=== PATIENT | male | born 1970 | race Caucasian/White ===

== ENCOUNTER 2019-02-23 20:37 | Inpatient (IN) | payer BC ==
[~2019-02-23] VITALS: Ht 172.7 cm; Wt 101.6 kg
[~2019-02-23 20:37] MED LIST: ENALAPRIL MALEA20 MG PO; FENOFIBRATE160 MG PO; METOPROLOL SUCC25 MG PO; NORVASC10 MG PO
--- NOTE | 2019-02-23 20:55 | NUR ---
ED Nurse Note: Pt ambulated to ED from home c/o10/10 sudden sharp stabing pain in lower back that radiates to the flank, denies N/V/D pr fever
[2019-02-23 21:00] VITALS: BP 108/73
[2019-02-23] MEDS ORDERED: Ketorolac 30mg Inj IV ONE (21:30)
[2019-02-23] MEDS ORDERED: Omnipaque-300 100ml vial INJ PRN (21:30)
[2019-02-23] MEDS ORDERED: Morphine Sulfate 4mg/ml Inj (IV USE ONLY) IVP ONE (21:30)
[2019-02-23 22:14] LABS: BASOPHILS % (AUTO) 0.9 % (0.0-2.0); EOSINOPHILS % (AUTO) 0.4 % (0.0-3.0); HEMATOCRIT 41.3 % (42.0-52.0); HEMOGLOBIN 14.3 G/DL (14.2-18.0); LYMPHOCYTES % (AUTO) 20.5 % (20.0-45.0); MEAN CORPUSCULAR VOLUME 81 FL (80-99); MONOCYTES % (AUTO) 7.2 % (1.0-10.0); PLATELET COUNT 246 K/UL (150-450); RED BLOOD COUNT 5.08 M/UL (4.70-6.10); WHITE BLOOD COUNT 11.1 K/UL (4.8-10.8)
[2019-02-23 22:27] LABS: ANION GAP 12 mmol/L (5-15); BLOOD UREA NITROGEN 37 mg/dL (7-18); CALCIUM 9.6 MG/DL (8.5-10.1); CARBON DIOXIDE 26 MMOL/L (21-32); CHLORIDE 99 MMOL/L (98-107); CREATININE 2.1 MG/DL (0.55-1.30); POTASSIUM 3.7 MMOL/L (3.5-5.1); SODIUM 137 MMOL/L (136-145)
[2019-02-23 22:45] LABS: ALANINE AMINOTRANSFERASE 45 U/L (12-78); ALBUMIN 3.6 G/DL (3.4-5.0); ALBUMIN/GLOBULIN RATIO 0.8 (1.0-2.7); ALKALINE PHOSPHATASE 83 U/L (46-116); ASPARTATE AMINO TRANSFERASE 21 U/L (15-37); BILIRUBIN,TOTAL 1.7 MG/DL (0.2-1.0)
[2019-02-23 22:46] LABS: BILIRUBIN,DIRECT 0.3 MG/DL (0.0-0.3)
--- NOTE | 2019-02-23 22:49 | NUR ---
ED Nurse Note: Pt to CT
--- NOTE | 2019-02-23 22:50 | NUR ---
ED Nurse Note: Pt back from CT, reports pain is 0/10 at this time
[2019-02-23 23:00] VITALS: BP 110/75
[2019-02-23 23:09] LABS: APPEARANCE,URINE CLOUDY; BILIRUBIN, URINE NEGATIVE (NEGATIVE); COLOR,URINE PALE YELLOW; GLUCOSE, URINE (UA) NEGATIVE (NEGATIVE); KETONES,URINE 3+ (NEGATIVE); LEUKOCYTE ESTERASE ,URINE 2+ (NEGATIVE); NITRITE,URINE NEGATIVE (NEGATIVE); PH,URINE 5 (4.5-8.0); PROTEIN,URINE 1+ (NEGATIVE); UROBILINOGEN,URINE NORMAL MG/DL (0.0-1.0)
--- NOTE | 2019-02-23 23:39 | Diagnostic Imaging Report ---
Indication: Sudden sharp radiating flank pain and lower back pain Technique: Spiral acquisitions obtained through the abdomen and pelvis. No oral or IV contrast utilized, per urinary stone protocol. Multiplanar reconstructions were generated. Total dose length product 1765 mGycm. CTDIvol(s) 28 mGy. Dose reduction achieved using automated exposure control Comparison: none Findings: There is a 4 mm calculus sitting dependently within the bladder lumen centrally. There is mild prominence of the right renal collecting system and right ureter and slight stranding of the perinephric fat. No intrarenal calculus demonstrated on the right. No ureteral calculi seen on either side A calcification is seen in a left upper pole calyx measuring 3 mm in diameter. There is very slight stranding of the perinephric fat on the left, but this is somewhat less striking than the right, and there is no evidence of ureteral dilatation or hydronephrosis. The bladder itself is unremarkable. Seminal vesicles and prostate are unremarkable. Lack of IV contrast limits assessment of the renal parenchyma. No gross renal parenchymal mass or cyst demonstrated. Lack of IV contrast limits assessment of the other solid organs. The liver is diffusely hypoattenuating with some patchy areas of sparing in segments 2 and 3. No focal abnormality otherwise. The gallbladder, bile ducts, pancreas, spleen, adrenals are unremarkable. The included lung bases are clear except for some atelectasis or scarring in the inferior lingula. The bones demonstrate degenerative changes at the lumbosacral junction, are otherwise unremarkable. Impression: 4 mm calculus within the bladder lumen, presumably a recently passed stone. Slight right hydronephrosis and proximal ureteral ectasia and periureteral fat stranding suggests that this came from the right kidney. This finding was not reported on the [facility] preliminary report. Dr. Diaz notified by phone of this finding and [facility] was notified. There is website Nonobstructive intrarenal calculus seen within the left kidney Fatty liver with areas of focal sparing Incidental findings as noted, including basilar pulmonary parenchymal atelectatic changes versus scarring, prior cholecystectomy The CT scanner at [facility] is accredited by the [employer] and the scans are performed using protocols designed to limit radiation exposure to as low as reasonably achievable to attain images of sufficient resolution adequate for diagnostic evaluation.
[2019-02-24] MEDS ORDERED: cefTRIAXone 1 GM in NS 55 ML IVPB ONE (00:15)
--- NOTE | 2019-02-24 01:15 | NUR ---
TRANSFER TO FLOOR: Patient transferred to as ordered, per Dr Garza. Report given to SHERLYN Hernadez. Belongings and medications given to . Family and or S/O informed of transfer.
--- NOTE | 2019-02-24 01:30 | NUR ---
NURSE NOTES: PATIENT WAS SAFELY TRANSFER TO UNIT ROOM 411-2 VIA WHEELCHAIR. ORIENTED PATIENT TO ROOM AND UNIT. BELONGING LIST REVIEWED AND SIGNED BY PATIENT. RECEIVED REPORT FROM SHERLYN MORAN. PT IS AWAKE, AAO X4, ON ROOM AIR, NO ACUTE DISTRESS NOTED. PATIENT DENIES PAIN AND SOB. SKIN IS INTACT. IV ON LEFT AC 20G AND RIGHT AC 20G IS INTACT AND PATENT. ABDOMEN IS ROUND AND SOFT. SLIGHTLY DISTENDED. CONTACTED DR. DE SOUZA FOR ADMISSION ORDERS. AWAITING FOR CALL BACK. PATIENT'S HOME MEDICATION WAS SENT DOWN TO PHARMACY. RECEIPT NUMBER [id number]. BED IS LOCKED AND LOW, BED ALARMS ACTIVE, SIDE RAILS UP X2 AND CALL LIGHT IS WITHIN REACH. WILL CONTINUE TO MONITOR.
--- NOTE | 2019-02-24 02:42 | Emergency Room Report ---
History of Present Illness General Chief Complaint: Back Pain-No Injury Source: Patient Present Illness HPI 48-year-old male presents ED for evaluation. Complaining of back pain. Started tonight. States he has been having back pain on and off for the last week but got worse tonight. Denies any fall or injury. States he is recently had physical therapy and acupuncture without relief. Pain is 10 out of 10, sharp, radiating to the mid abdomen on the right. Notes nausea, denies vomiting. No other aggravating relieving factors. Denies any other associated symptoms Allergies: Coded Allergies: No Known Allergies (Unverified , 09/22/11) Patient History Past Medical History: HTN Past Surgical History: none Pertinent Family History: none Social History: Denies: smoking, alcohol use, drug use Immunizations: UTD Reviewed Nursing Documentation: PMH: Agreed; PSxH: Agreed Nursing Documentation-PMH Hx Hypertension: Yes Hx Cancer: No Hx Gastrointestinal Problems: Yes Hx Neurological Problems: No Review of Systems All Other Systems: negative except mentioned in HPI Physical Exam Vital Signs Date Time Temp Pulse Resp B/P (MAP) Pulse Ox O2 Delivery O2 Flow Rate FiO2 02/23/19 20:50 98.2 89 16 108/73 (85) 95 Room Air Sp02 EP Interpretation: reviewed, normal General Appearance: alert, GCS 15, non-toxic, mild distress Head: normocephalic, atraumatic Eyes: bilateral eye normal inspection, bilateral eye PERRL ENT: hearing grossly normal, normal pharynx, no angioedema, normal voice Neck: full range of motion, supple/symm/no masses Respiratory: chest non-tender, lungs clear, normal breath sounds, speaking full sentences Cardiovascular #1: regular rate, rhythm, no edema Cardiovascular #2: 2+ carotid (R), 2+ carotid (L), 2+ radial (R), 2+ radial (L) , 2+ dorsalis pedis (R), 2+ dorsalis pedis (L) Gastrointestinal: normal bowel sounds, soft, non-distended, no guarding, no rebound, tenderness - R side abdomen Rectal: deferred Genitourinary: normal inspection, CVA tenderness (R) Musculoskeletal: back normal, normal range of motion, gait/station normal, non- tender Neurologic: alert, motor strength/tone normal, oriented x3, sensory intact, responsive, speech normal Psychiatric: judgement/insight normal, memory normal, mood/affect normal, no suicidal/homicidal ideation Reflexes: 3+ bicep (R), 3+ bicep (L), 3+ tricep (R), 3+ tricep (L), 3+ knee (R) , 3+ knee (L) Skin: no rash Lymphatic: no adenopathy Medical Decision Making Diagnostic Impression: Primary Impression: Kidney stone Additional Impressions: UTI (urinary tract infection) Qualified Codes: N39.0 - Urinary tract infection, site not specified; R31.9 - Hematuria, unspecified Renal insufficiency ER Course Hospital Course 48-year-old M presents to ED with R flank pain Differential diagnosis includes-appendicitis, cholecystitis, kidney stone, pyelonephritis Clinical course Patient placed on stretcher. After initial history and physical I ordered labs , IV fluids, pain medications and CT scan Labs - no leukocytosis, hb/hct stable, BUN/Cr elevated, UA + bacteria + blood CT shows no evidence of an obstructive uropathy. Consideration for passed stone. Given UTI with elevated BUN/creatinine I believe patient should be admitted. Discussed case with urology and they agreed. Given IV fluids. Given antibiotics. Dr Diaz will consult. patient admitted to Dr Barnes service I feel this is a highly complex case requiring extensive working including EKG/ Rhythm strip, Xray/CT/US, Blood/urine lab work, repeat exams while in ED, and administration of strong opiates/narcotics for pain control, admission to hospital or close patient follow up. Diagnosis - kidney stone, UTI, renal insufficiency admitted to floor in serious condition Labs Test 02/23/19 21:40 02/23/19 23:00 White Blood Count 11.1 K/UL (4.8-10.8) Red Blood Count 5.08 M/UL (4.70-6.10) Hemoglobin 14.3 G/DL (14.2-18.0) Hematocrit 41.3 % (42.0-52.0) Mean Corpuscular Volume 81 FL (80-99) Mean Corpuscular Hemoglobin 28.1 PG (27.0-31.0) Mean Corpuscular Hemoglobin Concent 34.7 G/DL (32.0-36.0) Red Cell Distribution Width 10.0 % (11.6-14.8) Platelet Count 246 K/UL (150-450) Mean Platelet Volume 5.7 FL (6.5-10.1) Neutrophils (%) (Auto) 71.0 % (45.0-75.0) Lymphocytes (%) (Auto) 20.5 % (20.0-45.0) Monocytes (%) (Auto) 7.2 % (1.0-10.0) Eosinophils (%) (Auto) 0.4 % (0.0-3.0) Basophils (%) (Auto) 0.9 % (0.0-2.0) Sodium Level 137 MMOL/L (136-145) Potassium Level 3.7 MMOL/L (3.5-5.1) Chloride Level 99 MMOL/L (98-107) Carbon Dioxide Level 26 MMOL/L (21-32) Anion Gap 12 mmol/L (5-15) Blood Urea Nitrogen 37 mg/dL (7-18) Creatinine 2.1 MG/DL (0.55-1.30) Estimat Glomerular Filtration Rate 33.9 mL/min (>60) Glucose Level 99 MG/DL (74-106) Calcium Level 9.6 MG/DL (8.5-10.1) Total Bilirubin 1.7 MG/DL (0.2-1.0) Direct Bilirubin 0.3 MG/DL (0.0-0.3) Aspartate Amino Transf (AST/SGOT) 21 U/L (15-37) Alanine Aminotransferase (ALT/SGPT) 45 U/L (12-78) Alkaline Phosphatase 83 U/L (46-116) Total Protein 7.9 G/DL (6.4-8.2) Albumin 3.6 G/DL (3.4-5.0) Globulin 4.3 g/dL Albumin/Globulin Ratio 0.8 (1.0-2.7) Lipase 99 U/L (73-393) Urine Color Pale yellow Urine Appearance Cloudy Urine pH 5 (4.5-8.0) Urine Specific [place] 1.020 (1.005-1.035) Urine Protein 1+ (NEGATIVE) Urine Glucose (UA) Negative (NEGATIVE) Urine Ketones 3+ (NEGATIVE) Urine Blood 5+ (NEGATIVE) Urine Nitrite Negative (NEGATIVE) Urine Bilirubin Negative (NEGATIVE) Urine Urobilinogen Normal MG/DL (0.0-1.0) Urine Leukocyte Esterase 2+ (NEGATIVE) Urine RBC Tntc /HPF (0 - 0) Urine WBC 20-30 /HPF (0 - 0) Urine Squamous Epithelial Cells None /LPF (NONE/OCC) Urine Amorphous Sediment Moderate /LPF (NONE) Urine Bacteria Moderate /HPF (NONE) Urine Opiates Screen Positive (NEGATIVE) Urine Barbiturates Screen Negative (NEGATIVE) Phencyclidine (PCP) Screen Negative (NEGATIVE) Urine Amphetamines Screen Negative (NEGATIVE) Urine Benzodiazepines Screen Negative (NEGATIVE) Urine Cocaine Screen Negative (NEGATIVE) Urine Marijuana (THC) Screen Negative (NEGATIVE) CT/MRI/US Diagnostic Results CT/MRI/US Diagnostic Results : Imaging Test Ordered: CT A/P Impression Small nonobstructing calyceal calculus at the upper pole of the left kidney. No evidence for obstructive uropathy. Hepatic steatosis. Prior cholecystectomy. No appendicitis, inflammatory changes of bowel or bowel obstruction. No free fluid. No free air. Aorta, spleen, pancreas, and kidneys are unremarkable. Last Vital Signs Date Time Temp Pulse Resp B/P (MAP) Pulse Ox O2 Delivery O2 Flow Rate FiO2 02/24/19 01:15 98.4 78 16 110/75 96 Room Air Status: improved Disposition: ADMITTED INPATIENT Condition: Serious Referrals: NON PHYSICIAN (PCP) Gary Bronson MD Feb 24, 2019 02:42
[2019-02-24] MEDS ORDERED: Ketorolac 30mg Inj IV PRN (02:45)
[2019-02-24] MEDS ORDERED: Morphine Sulfate 4mg/ml Inj (IV USE ONLY) IVP PRN ×2 (02:45→04:45)
[2019-02-24 04:00] VITALS: BP_SYST 107; BP_SYST 123; BP_DIAS 60; BP_DIAS 78
--- NOTE | 2019-02-24 07:18 | NUR ---
HAND-OFF: Report given to SHERLYN Villaseñor. Patient is in stable condition. Endorsed plan of care.
--- NOTE | 2019-02-24 07:22 | NUR ---
NURSE NOTES: Received patient in bed awake. No SOB or acute distress. IV lines intact. HOB elevated. Bed locked in lowest position. Call light within reach. On NPO. Will continue plan of care.
[2019-02-24 08:00] VITALS: BP 114/85
[2019-02-24] MEDS: Metoprolol Succinate XL 25mg tab ORAL SCH (09:37)
--- NOTE | 2019-02-24 11:23 | Consultation ---
Consult Note Consult Note asked to eval for renal failure- patient interviewed Denies any history of renal failure HTN only past history examined questions answered data reviewed 48-year-old male presents ED for evaluation. Complaining of back pain. Started tonight. States he has been having back pain on and off for the last week but got worse tonight. Denies any fall or injury. States he is recently had physical therapy and acupuncture without relief. Pain is 10 out of 10, sharp, radiating to the mid abdomen on the right. Notes nausea, denies vomiting. No other aggravating relieving factors. Denies any other associated symptoms No Known Allergies (Unverified , 09/22/11) Past Medical History: HTN Hx Hypertension: Yes Hx Gastrointestinal Problems: Yes . Assessment/Plan Renal failure- Kidney Stone HTN UTI Hydrate monitor renal parameters avoid nephrotoxics PRN BP meds per orders Jude Yun MD Feb 24, 2019 11:23
[2019-02-24] MEDS ORDERED: HydrALAZINE 25mg tab ORAL PRN (11:30)
[2019-02-24] MEDS: Tamsulosin 0.4mg cap ORAL SCH ×2 (11:34→17:38)
[2019-02-24] MEDS: D5NS 1,000 ML IV SCH ×2 (11:35→22:52)
[2019-02-24 11:41] LABS: BASOPHILS % (AUTO) 1.1 % (0.0-2.0); EOSINOPHILS % (AUTO) 1.6 % (0.0-3.0); HEMATOCRIT 40.7 % (42.0-52.0); HEMOGLOBIN 14.2 G/DL (14.2-18.0); LYMPHOCYTES % (AUTO) 27.7 % (20.0-45.0); MEAN CORPUSCULAR VOLUME 81 FL (80-99); MONOCYTES % (AUTO) 8.4 % (1.0-10.0); NEUTROPHILS % (AUTO) 61.3 % (45.0-75.0); PLATELET COUNT 265 K/UL (150-450); RED BLOOD COUNT 5.03 M/UL (4.70-6.10); WHITE BLOOD COUNT 7.9 K/UL (4.8-10.8)
[2019-02-24 11:56] LABS: CHOLESTEROL 179 MG/DL (< 200); HDL CHOLESTEROL 48 MG/DL (40-60); TRIGLYCERIDES 122 MG/DL (30-150)
[2019-02-24 11:59] LABS: ALANINE AMINOTRANSFERASE 45 U/L (12-78); ALBUMIN 3.6 G/DL (3.4-5.0); ALBUMIN/GLOBULIN RATIO 0.8 (1.0-2.7); ALKALINE PHOSPHATASE 91 U/L (46-116); ANION GAP 15 mmol/L (5-15); ASPARTATE AMINO TRANSFERASE 19 U/L (15-37); BILIRUBIN,TOTAL 1.4 MG/DL (0.2-1.0); BLOOD UREA NITROGEN 33 mg/dL (7-18); CARBON DIOXIDE 22 MMOL/L (21-32); CHLORIDE 101 MMOL/L (98-107); CREATINE KINASE 97 U/L (26-308); GAMMA GLUTAMYL TRANSPEPTIDASE 5 U/L (5-85); PHOSPHORUS 3.7 MG/DL (2.5-4.9); POTASSIUM 3.8 MMOL/L (3.5-5.1); SODIUM 138 MMOL/L (136-145)
[2019-02-24 12:00] VITALS: BP 115/73
[2019-02-24 12:17] LABS: CALCIUM 9.2 MG/DL (8.5-10.1); CREATININE 1.6 MG/DL (0.55-1.30)
[2019-02-24 16:00] VITALS: BP 116/64
--- NOTE | 2019-02-24 17:00 | NUR ---
CHARGE NURSE NOTE: Spoke with , notified him about CT of abdomen result. He is not planning to do any procedure. He said pt can be discharged tomorrow.
--- NOTE | 2019-02-24 19:54 | NUR ---
NURSE NOTES: Received patient awake, alert, verbal, resting in bed comfortably without complaints.
[2019-02-24 20:00] VITALS: BP 110/70
--- NOTE | 2019-02-24 22:30 | History and Physical Report ---
DATE OF ADMISSION: 02/24/2019 HISTORY OF PRESENT ILLNESS: The patient is admitted for renal insufficiency as well as urinary tract infection as well as possible kidney stone. The patient complains of four-day of right flank pain that was intermittent, associated with vomiting after eating. The patient denies diarrhea, denies abdominal pain, but does have right-sided flank pain. Denies chills. Denies wheezing. Denies shortness of breath. Denies cough. The patient is admitted for also possible kidney stone. PAST MEDICAL HISTORY: Significant for hyperlipidemia, hypertension. PAST SURGICAL HISTORY: Appendectomy surgery. ALLERGIES: No known allergies. MEDICATIONS: Enalapril, Norvasc, fenofibrate, and metoprolol. FAMILY HISTORY: Noncontributory. SOCIAL HISTORY: Denies smoking, alcohol, or illicit drugs. Denies all of that. REVIEW OF SYSTEMS: HEENT: Denies headaches. RESPIRATORY: Denies shortness of breath. Denies cough. CARDIOVASCULAR: Denies chest pain. GASTROINTESTINAL: He does have vomiting for four days and does have right-sided flank pain for four days that is intermittent. No constipation or diarrhea. EXTREMITIES: Denies pain in lower extremities. CENTRAL NERVOUS SYSTEM: Denies change in speech pattern. PHYSICAL EXAMINATION: VITAL SIGNS: Basically temperature is 97.9, pulse is 75, blood pressure 115/70. HEENT: PERRLA. NECK: Supple. No lymphadenopathy. CHEST: Clear to auscultation. CARDIOVASCULAR: Regular rate and rhythm. No murmurs or extra sounds. GASTROINTESTINAL: Abdomen is soft. No organomegaly. EXTREMITIES: No edema. Moves all four extremities. NEUROLOGIC: . Oriented x2. Reflexes equal on both sides. LABORATORY DATA: WBC of 11.1, hemoglobin 14.3, and platelets of 246,000. Sodium 137, potassium 3.7, BUN of 37, creatinine of 2.1, and glucose of 99. ASSESSMENT AND PLAN: 1. Acute renal failure. 2. Possible kidney stone. 3. Urinary tract infection. The patient's symptoms are very consistent with kidney stone as well. I have asked Dr. Diaz as well as Dr. Mehran Christianson, Dr. Yun to help with the management of the acute renal failure as well as for the management of the kidney stone and urinary tract infection. Antibiotics per Dr. Mehran Christianson. Mar Barnes M.D. DR: DANA JOB#: [id number] CC:
[2019-02-24] MEDS ORDERED: cefTRIAXone 1 GM in D5W 55 ML IVPB SCH (23:00)
[2019-02-25 00:01] VITALS: BP 101/64
--- NOTE | 2019-02-25 02:15 | Consultation ---
DATE OF CONSULTATION: 02/24/2019 INFECTIOUS DISEASES CONSULTATION CONSULTING PHYSICIAN: Mehran Christianson M.D. PRIMARY ATTENDING PHYSICIAN: Mar Barnes M.D. REASON FOR CONSULTATION: UTI, nephrolithiasis. HISTORY OF PRESENT ILLNESS: This is a 48-year-old white male admitted today from home complaining of left flank pain for one week on and off with radiation to the anterior abdomen. The patient had acupuncture & pain medications without improvement and last night the pain became so severe that the patient came to the ER. PAST MEDICAL HISTORY: Significant for hypertension. ALLERGIES: No known drug allergies. MEDICATIONS: Getting Flomax, hydralazine, metoprolol, Tylenol, morphine, Zofran. Got a dose of ceftriaxone in the ER. SOCIAL HISTORY: Single, has a partner. Denies alcohol, drug abuse, or smoking. REVIEW OF SYSTEMS: The patient has no pain at the present time. No fever. No chills. No coughing. No shortness of breath. No chest pain. No nausea. No vomiting. PHYSICAL EXAMINATION: VITAL SIGNS: Temperature 97.2, pulse 72, blood pressure 114/85. GENERAL APPEARANCE: No acute distress, ambulatory, obese HEAD AND NECK: Saxis conjunctiva. No oral lesion. HEART: S1 and S2 regular. LUNGS: Clear. ABDOMEN: Soft, nontender. EXTREMITIES: No edema noted. NEUROLOGIC: Awake, alert, oriented x3. LABORATORY AND DIAGNOSTIC DATA: UA showed wbc's of 20 to 30, rbc's too numerous to count. Sodium 138, potassium 2.8, chloride 101, bicarbonate 22, BUN 33, creatinine 1.6. Uric acid is 11.2. Urine toxicology is positive for opiates. WBC at the time of admission was 11.1 and today is 7.9, hemoglobin 14.2, hematocrit 40.7, platelets is 265. Urine culture so far no growth. CT scan of abdomen and pelvis showed fatty liver, 4 mm calculus within the bladder lumen, presumably recently passed IMPRESSION: Pyuria, hematuria likely secondary to passing kidney stone, nephrolithiasis, mild right hydronephrosis, acute renal failure, fatty liver. RECOMMENDATIONS: The patient may benefit from short term antibiotic in hospital. We will follow up the clinical course.We will continue Rocephin. At the end of my exam, I thank Dr. Barnes, for involving me in the care of this patient. Mehran Christianson M.D. DR: Cecelia JOB#: [id number] CC: MEMO
[2019-02-25 04:00] VITALS: BP 111/76
--- NOTE | 2019-02-25 07:11 | NUR ---
HAND-OFF: Report given to SHERLYN Neri.
[2019-02-25 08:00] VITALS: BP 112/71
[2019-02-25 08:00] LABS: BASOPHILS % (AUTO) 1.6 % (0.0-2.0); EOSINOPHILS % (AUTO) 2.9 % (0.0-3.0); HEMATOCRIT 37.9 % (42.0-52.0); HEMOGLOBIN 12.8 G/DL (14.2-18.0); LYMPHOCYTES % (AUTO) 40.8 % (20.0-45.0); MEAN CORPUSCULAR VOLUME 83 FL (80-99); MONOCYTES % (AUTO) 8.4 % (1.0-10.0); NEUTROPHILS % (AUTO) 46.4 % (45.0-75.0); PLATELET COUNT 249 K/UL (150-450); RED BLOOD COUNT 4.57 M/UL (4.70-6.10); RED CELL DISTRIBUTION WIDTH 11.2 % (11.6-14.8); WHITE BLOOD COUNT 5.1 K/UL (4.8-10.8)
--- NOTE | 2019-02-25 08:00 | NUR ---
NURSE NOTES: Received report from Nyla PLATA, pt a/a/o x4 laying in bed with no signs of distress or other issues at this time. pt stated that he feels better and that he will like to go home today. IV on the right AC gauge #20 running D5NS@100ml/hr. pt able to ambulate around the room with steady gait. call light within reach, bed in lowest position, side rales up x2. plan to d/c home today. I will f/u as needed.
[2019-02-25 08:36] LABS: ALANINE AMINOTRANSFERASE 39 U/L (12-78); ALBUMIN 2.9 G/DL (3.4-5.0); ALBUMIN/GLOBULIN RATIO 0.7 (1.0-2.7); ALKALINE PHOSPHATASE 70 U/L (46-116); ANION GAP 5 mmol/L (5-15); ASPARTATE AMINO TRANSFERASE 19 U/L (15-37); BILIRUBIN,TOTAL 0.8 MG/DL (0.2-1.0); BLOOD UREA NITROGEN 27 mg/dL (7-18); CALCIUM 8.8 MG/DL (8.5-10.1); CARBON DIOXIDE 29 MMOL/L (21-32); CHLORIDE 106 MMOL/L (98-107); CREATININE 1.3 MG/DL (0.55-1.30); PHOSPHORUS 3.1 MG/DL (2.5-4.9); POTASSIUM 3.7 MMOL/L (3.5-5.1); SODIUM 140 MMOL/L (136-145)
[2019-02-25] MEDS: Tamsulosin 0.4mg cap ORAL SCH (08:37)
[2019-02-25] MEDS: Metoprolol Succinate XL 25mg tab ORAL SCH (08:37)
[2019-02-25] MEDS: D5NS 1,000 ML IV SCH (08:38)
[2019-02-25] MEDS ORDERED: D5NS 1,000 ML IV SCH (09:05)
--- NOTE | 2019-02-25 09:06 | Nephrology Progress Note ---
Assessment/Plan Problem List: (1) Acute renal failure (ARF) (2) Dehydration (3) UTI (urinary tract infection) (4) Kidney stone Assessment Renal failure- Kidney Stone HTN UTI Plan Hydrate until discharged monitor renal parameters upon Dc by PMD avoid nephrotoxics PRN BP meds while in house per orders Subjective ROS Limited/Unobtainable: No Interval Events/Complaints anxious to go home Objective Objective Last 24 Hour Vital Signs Date Time Temp Pulse Resp B/P (MAP) Pulse Ox O2 Delivery O2 Flow Rate FiO2 02/25/19 08:37 93 112/71 02/25/19 04:00 97.9 72 18 111/76 (88) 99 02/25/19 00:01 97.9 80 19 101/64 (76) 98 02/24/19 20:20 Room Air 02/24/19 20:00 98.7 89 20 110/70 (83) 97 02/24/19 16:00 98.2 92 18 116/64 (81) 98 02/24/19 12:00 97.9 75 20 115/73 (87) 100 02/24/19 09:37 114/85 02/24/19 09:37 70 114/85 02/24/19 09:36 70 114/85 Intake and Output 02/24/19 02/25/19 19:00 07:00 Intake Total 700 ml 1055 ml Output Total 450 ml Balance 250 ml 1055 ml Intake IV Total 700 ml 1055 ml Output Urine Total 450 ml # Voids 2 Current Medications Medications (Trade) Dose Ordered Sig/Melina Route PRN Reason Start Time Stop Time Status Last Admin Dose Admin Acetaminophen (Tylenol) 650 mg Q4H PRN ORAL Mild Pain/Temp > 100.5 02/24/19 04:45 03/26/19 04:44 Ceftriaxone Sodium 1 gm/ Dextrose 55 ml @ 110 mls/hr Q24H IVPB 02/24/19 23:00 03/03/19 22:59 02/24/19 22:52 Dextrose/Sodium Chloride 1,000 ml @ 100 mls/hr Q10H IV 02/24/19 11:30 03/26/19 11:29 02/25/19 08:38 Hydralazine HCl (Apresoline) 25 mg Q4H PRN ORAL bp over 160 syst 02/24/19 11:30 03/26/19 11:29 Iohexol (OMNIPAQUE-300 100ml) 100 ml NOW PRN INJ Radiology Procedure 02/23/19 21:30 02/25/19 21:25 Metoprolol Succinate (Toprol XL) 25 mg DAILY ORAL 02/24/19 09:00 03/26/19 08:59 02/25/19 08:37 Morphine Sulfate (Morphine Sulfate) 4 mg Q6H PRN IVP For Pain 02/24/19 04:45 03/03/19 04:44 Ondansetron HCl (Zofran) 4 mg Q4HR PRN IVP Nausea & Vomiting 02/24/19 02:45 Tamsulosin HCl (Flomax) 0.4 mg BID ORAL 02/24/19 11:30 03/26/19 11:29 02/25/19 08:37 Laboratory Tests 02/24/19 11:32: White Blood Count 7.9, Red Blood Count 5.03, Hemoglobin 14.2, Hematocrit 40.7L, Mean Corpuscular Volume 81, Mean Corpuscular Hemoglobin 28.2, Mean Corpuscular Hemoglobin Concent 34.9, Red Cell Distribution Width 10.0L, Platelet Count 265, Mean Platelet Volume 6.1L, Neutrophils (%) (Auto) 61.3, Lymphocytes (%) (Auto) 27.7, Monocytes (%) (Auto) 8.4, Eosinophils (%) (Auto) 1.6, Basophils (%) (Auto ) 1.1, Sodium Level 138, Potassium Level 3.8, Chloride Level 101, Carbon Dioxide Level 22, Anion Gap 15, Blood Urea Nitrogen 33H, Creatinine 1.6H, Estimat Glomerular Filtration Rate 46.4, Glucose Level 83, Hemoglobin A1c 6.1H, Uric Acid 11.2H, Calcium Level 9.2, Phosphorus Level 3.7, Magnesium Level 2.1, Total Bilirubin 1.4H, Direct Bilirubin 0.0, Gamma Glutamyl Transpeptidase 5, Aspartate Amino Transf (AST/SGOT) 19, Alanine Aminotransferase (ALT/SGPT) 45, Alkaline Phosphatase 91, Total Creatine Kinase 97, C-Reactive Protein, Quantitative 13.3H, Total Protein 8.2, Albumin 3.6, Globulin 4.6, Albumin/ Globulin Ratio 0.8L, Triglycerides Level 122, Cholesterol Level 179, LDL Cholesterol 107H, HDL Cholesterol 48, Cholesterol/HDL Ratio 3.7 02/25/19 07:13: White Blood Count 5.1, Red Blood Count 4.57L, Hemoglobin 12.8L, Hematocrit 37.9L , Mean Corpuscular Volume 83, Mean Corpuscular Hemoglobin 27.9, Mean Corpuscular Hemoglobin Concent 33.7, Red Cell Distribution Width 11.2L, Platelet Count 249, Mean Platelet Volume 6.5, Neutrophils (%) (Auto) 46.4, Lymphocytes (%) (Auto) 40.8, Monocytes (%) (Auto) 8.4, Eosinophils (%) (Auto) 2.9, Basophils (%) (Auto) 1.6, Sodium Level 140, Potassium Level 3.7, Chloride Level 106, Carbon Dioxide Level 29, Anion Gap 5, Blood Urea Nitrogen 27H, Creatinine 1.3, Estimat Glomerular Filtration Rate 58.9, Glucose Level 112H, Uric Acid 9.7H, Calcium Level 8.8, Phosphorus Level 3.1, Magnesium Level 2.0, Total Bilirubin 0.8, Aspartate Amino Transf (AST/SGOT) 19, Alanine Aminotransferase (ALT/SGPT) 39, Alkaline Phosphatase 70, C-Reactive Protein, Quantitative 6.3H, Total Protein 6.9, Albumin 2.9L, Globulin 4.0, Albumin/ Globulin Ratio 0.7L Height (Feet): 5 Height (Inches): 8.00 Weight (Pounds): 224 General Appearance: no apparent distress Cardiovascular: normal rate Respiratory/Chest: lungs clear Abdomen: soft, other - obese Jude Yun MD Feb 25, 2019 09:06
--- NOTE | 2019-02-25 11:43 | NUR ---
*-* INSURANCE *-* ALL AVAILABLE CLINICALS HAVE BEEN FAXED TO: [employer]#[id number] [facility]#[phone] FAX#[phone] REVIEWS/CLINICALS
[2019-02-25 12:00] VITALS: BP 110/79
--- NOTE | 2019-02-25 13:02 | Infectious Diseases Prog Note ---
Assessment/Plan Assessment/Plan IMPRESSION: Pyuria, hematuria likely secondary to passing kidney stone, nephrolithiasis, mild right hydronephrosis, acute renal failure, fatty liver. RECOMMENDATIONS: Discontinue Rocephin. Agree with discharge Subjective ROS Limited/Unobtainable: No Constitutional: Reports: no symptoms Gastrointestinal/Abdominal: Reports: no symptoms Genitourinary: Reports: no symptoms Allergies: Coded Allergies: No Known Allergies (Unverified , 09/22/11) Objective Vital Signs Last 24 Hour Vital Signs Date Time Temp Pulse Resp B/P (MAP) Pulse Ox O2 Delivery O2 Flow Rate FiO2 02/25/19 12:00 98.6 96 18 110/79 (89) 81 02/25/19 09:00 Room Air 02/25/19 08:37 93 112/71 02/25/19 08:00 98.0 90 18 112/71 (85) 96 02/25/19 04:00 97.9 72 18 111/76 (88) 99 02/25/19 00:01 97.9 80 19 101/64 (76) 98 02/24/19 20:20 Room Air 02/24/19 20:00 98.7 89 20 110/70 (83) 97 02/24/19 16:00 98.2 92 18 116/64 (81) 98 Height (Feet): 5 Height (Inches): 8.00 Weight (Pounds): 224 General Appearance: no acute distress HEENT: mucous membranes moist Respiratory/Chest: lungs clear Cardiovascular: normal rate Abdomen: soft, non tender Extremities: no edema Neurologic/Psychiatric: alert, oriented x 3, responsive Microbiology Date/Time Source Procedure Growth Status 02/23/19 23:00 Urine,Clean Catch Urine Culture - Preliminary NO GROWTH AFTER 24 HOURS Resulted Laboratory Tests Test 02/25/19 07:13 White Blood Count 5.1 K/UL (4.8-10.8) Red Blood Count 4.57 M/UL (4.70-6.10) L Hemoglobin 12.8 G/DL (14.2-18.0) L Hematocrit 37.9 % (42.0-52.0) L Mean Corpuscular Volume 83 FL (80-99) Mean Corpuscular Hemoglobin 27.9 PG (27.0-31.0) Mean Corpuscular Hemoglobin Concent 33.7 G/DL (32.0-36.0) Red Cell Distribution Width 11.2 % (11.6-14.8) L Platelet Count 249 K/UL (150-450) Mean Platelet Volume 6.5 FL (6.5-10.1) Neutrophils (%) (Auto) 46.4 % (45.0-75.0) Lymphocytes (%) (Auto) 40.8 % (20.0-45.0) Monocytes (%) (Auto) 8.4 % (1.0-10.0) Eosinophils (%) (Auto) 2.9 % (0.0-3.0) Basophils (%) (Auto) 1.6 % (0.0-2.0) Sodium Level 140 MMOL/L (136-145) Potassium Level 3.7 MMOL/L (3.5-5.1) Chloride Level 106 MMOL/L (98-107) Carbon Dioxide Level 29 MMOL/L (21-32) Anion Gap 5 mmol/L (5-15) Blood Urea Nitrogen 27 mg/dL (7-18) H Creatinine 1.3 MG/DL (0.55-1.30) Estimat Glomerular Filtration Rate 58.9 mL/min (>60) Glucose Level 112 MG/DL (74-106) H Uric Acid 9.7 MG/DL (2.6-7.2) H Calcium Level 8.8 MG/DL (8.5-10.1) Phosphorus Level 3.1 MG/DL (2.5-4.9) Magnesium Level 2.0 MG/DL (1.8-2.4) Total Bilirubin 0.8 MG/DL (0.2-1.0) Aspartate Amino Transf (AST/SGOT) 19 U/L (15-37) Alanine Aminotransferase (ALT/SGPT) 39 U/L (12-78) Alkaline Phosphatase 70 U/L (46-116) C-Reactive Protein, Quantitative 6.3 mg/dL (0.00-0.90) H Total Protein 6.9 G/DL (6.4-8.2) Albumin 2.9 G/DL (3.4-5.0) L Globulin 4.0 g/dL Albumin/Globulin Ratio 0.7 (1.0-2.7) L Current Medications Medications (Trade) Dose Ordered Sig/Melina Route PRN Reason Start Time Stop Time Status Last Admin Dose Admin Acetaminophen (Tylenol) 650 mg Q4H PRN ORAL Mild Pain/Temp > 100.5 02/24/19 04:45 03/26/19 04:44 Ceftriaxone Sodium 1 gm/ Dextrose 55 ml @ 110 mls/hr Q24H IVPB 02/24/19 23:00 03/03/19 22:59 02/24/19 22:52 Dextrose/Sodium Chloride 1,000 ml @ 100 mls/hr Q10H IV 02/25/19 09:05 03/27/19 09:04 02/25/19 09:20 Hydralazine HCl (Apresoline) 25 mg Q4H PRN ORAL bp over 160 syst 02/24/19 11:30 03/26/19 11:29 Iohexol (OMNIPAQUE-300 100ml) 100 ml NOW PRN INJ Radiology Procedure 02/23/19 21:30 02/25/19 21:25 Metoprolol Succinate (Toprol XL) 25 mg DAILY ORAL 02/24/19 09:00 03/26/19 08:59 02/25/19 08:37 Ondansetron HCl (Zofran) 4 mg Q4HR PRN IVP Nausea & Vomiting 02/24/19 02:45 Tamsulosin HCl (Flomax) 0.4 mg BID ORAL 02/24/19 11:30 03/26/19 11:29 02/25/19 08:37 Mehran Christianson MD Feb 25, 2019 13:02
--- NOTE | 2019-02-25 14:07 | NUR ---
NURSE NOTES: Received orders to d/c pt. Discharge instructions and belongings list give to patient. patient is also aware that he needs to fallow up with his PCP and his Desk Officer of choice. IV removed prior to d/c. pt left the floor with no signs of distress or other issues at this time. pt will take [facility] home.
--- NOTE | 2019-02-26 09:07 | Discharge Summary ---
Discharge Summary Discharge Summary _ DATE OF ADMISSION: 02/24/2019 DATE OF DISCHARGE: 02/25/2019 DISCHARGED BY: Dr. Barnes REASON FOR ADMISSION: 48 years old male with past medical history of hypertension, presented to emergency room for evaluation of back pain , which started earlier that day. Patient reported intermittent back pain on and off for the last week , which got progressively worse. He denied fall or injury . He recently had physical therapy and acupuncture without much relief Pain described as 10 out of 10 , sharp ,radiating to the mid abdomen. Patient reported nausea , but no vomiting. Upon evaluation vital signs were stable. Laboratory work-up revealed mild leukocytosis WBC 11.1, stable hemoglobin , hematocrit and platelet count. Stable electrolytes. BUN 37, creatinine 2.1. Glucose 99. AST 21 , ALT 45 . Lipase 99 Albumin 3.6. Urinalysis revealed +2 leukocyte esterase, pyuria and moderate bacteria. Urine toxicology screen was positive for opiates . CT scan of the abdomen and pelvis revealed 4 mm calculus within the bladder lumen, presumably a recently passed stone. Slight right hydronephrosis and proximal ureteral ectasia and periureteral fat stranding , suggesting that this came from the right kidney. Nonobstructive intrarenal calculus seen within the left kidney. Fatty liver with areas of focal sparing . Patient started on the IV fluid and empiric antibiotic and admitted for further management. CONSULTANTS: ID specialist Dr. Mehran Christianson health concierge Dr. Yun HOSPITAL COURSE: Patient admitted to medical surgical floor . Patient was on the IV fluids and empiric antibiotics. Bench Assembler followed. Renal parameters and electrolytes were closely monitored, electrolytes corrected as needed , and nephrotoxins were avoided. Acute kidney injury resolved . BUN from 37 down to 27 , creatinine from 2.1 down to 1.3. Blood pressure was closely monitored and managed with beta-nikita. Hydralazine was on board as needed for blood pressure spikes. Blood pressure remained stable. Flomax continued. Urine culture revealed no evidence of growth. Per ID specialist patient had pyuria and hematuria most likely secondary to passing kidney stones. ID specialist discontinued antibiotic. Patient clinically stabilized and was ready for discharge home. Due to rapid and unexpected improvement in patient condition, patient was discharged in 1 day. FINAL DIAGNOSES: Acute renal failure-resolved Dehydration Nephrolithiasis Mild right hydronephrosis Pyuria and hematuria likely secondary to passing kidney stone Fatty liver DISCHARGE MEDICATIONS: See Medication Reconciliation list. DISCHARGE INSTRUCTIONS: Patient was discharged home. Follow-up with a primary care provider in 1 week. I have been assigned to dictate discharge summary for this account. I was not involved in the patient's management. Mayelin Torres NP Feb 26, 2019 09:07
== END 2019-02-25 13:56 | disposition home or self-care (01) | DRG 683 ==
LOC: EMR 21:24 → 4E 02-24 00:18 → EDBEDREQ 02-24 01:05
DX: N17.9 Acute kidney failure, unspecified (principal); N39.0 Urinary tract infection, site not specified; N13.2 Hydronephrosis with renal and ureteral calculous obstruction; E86.0 Dehydration; E78.5 Hyperlipidemia, unspecified; I10 Essential (primary) hypertension; K76.0 Fatty (change of) liver, not elsewhere classified; R31.9 Hematuria, unspecified
CPT/HCPCS: 36415; 74176; 80053; 80061; 80307; 81003; 82248; 82550; 82977; 83036; 83690; 83735; 84100; 84550; 85025; 86140; 87086; 96365; 96375; 99285; J2405; J7030